=== PATIENT | male | born 1980 | race American Indian/Alaskan Native ===

== ENCOUNTER 2021-06-03 10:47 | Emergency (ER) | payer SELFPAY ==
[2021-06-03 11:04] VITALS: BP 120/73
--- NOTE | 2021-06-03 11:15 | Emergency Department Report ---
ED General Adult HPI - General Chief complaint: Back Pain/Injury Stated complaint: LOWER BACK PAIN Time Seen by Provider: 06/03/21 11:03 Source: patient Mode of arrival: Ambulatory Limitations: No Limitations - History of Present Illness Initial comments: 40-year-old -M[place] male patient presents with complaints of left low back pain x yesterday. Patient states while at work, he pulled a heavy item and instantly got pain in his left lower back. He states the pain was mild yesterday, however it worsened upon waking and now he rates it as 8/10 in severity. He describes the pain as a tightness and denies trying any OTC medication for his symptoms. He states he did put heat on his back last night. He denies any loss of bladder/bowel control, numbness/tingling/weakness in his legs, abdominal pain, nausea/vomiting, chest pain, or shortness of breath. No past medical history per patient - Related Data Previous Rx's Medication Instructions Recorded Last Taken Type Naproxen 500 mg PO BID PRN #20 tablet 06/03/21 Unknown Rx methocarbamoL [Methocarbamol] 500 mg PO TID PRN #20 tablet 06/03/21 Unknown Rx Allergies Allergy/AdvReac Type Severity Reaction Status Date / Time No Known Allergies Allergy Verified 06/03/21 11:03 ED Review of Systems ROS: Stated complaint: LOWER BACK PAIN Other details as noted in HPI Constitutional: denies: malaise Respiratory: denies: shortness of breath Cardiovascular: denies: as per HPI Gastrointestinal: denies: abdominal pain, hematochezia Genitourinary: denies: hematuria Musculoskeletal: back pain Neurological: denies: weakness, numbness, paresthesias, abnormal gait ED Past Medical Hx - Past Medical History Previous Medical History?: No - Surgical History Past Surgical History?: No - Medications Home Medications: Home Medications Medication Instructions Recorded Confirmed Last Taken Type Naproxen 500 mg PO BID PRN #20 tablet 06/03/21 Unknown Rx methocarbamoL [Methocarbamol] 500 mg PO TID PRN #20 tablet 06/03/21 Unknown Rx ED Physical Exam - General Limitations: No Limitations General appearance: alert, in no apparent distress - Head Head exam: Present: atraumatic, normocephalic - Eye Eye exam: Present: normal appearance - Respiratory Respiratory exam: Present: normal lung sounds bilaterally. Absent: respiratory distress - Cardiovascular Cardiovascular Exam: Present: regular rate, normal rhythm - Back Exam Back exam: Present: full ROM, paraspinal tenderness (Left upper lumbar). Absent: vertebral tenderness (No obvious deformities or step-offs noted) - Expanded Back Exam Expanded Back exam: Absent: saddle anesthesia - Neurological Exam Neurological exam: Present: alert, oriented X3, normal gait - Psychiatric Psychiatric exam: Present: normal affect, normal mood - Skin Skin exam: Present: warm, dry, intact, normal color. Absent: rash ED Course Vital Signs 06/03/21 11:01 Temperature 98.4 F Pulse Rate 67 Respiratory 16 Rate Blood Pressure 120/73 [Left] O2 Sat by Pulse 96 Oximetry ED Medical Decision Making - Medical Decision Making 40-year-old -M[place] male patient presents with complaints of left low back pain x yesterday. Patient states while at work, he pulled a heavy item and instantly got pain in his left lower back. He states the pain was mild yesterday, however it worsened upon waking and now he rates it as 8/10 in severity. He describes the pain as a tightness and denies trying any OTC medication for his symptoms. He states he did put heat on his back last night. He denies any loss of bladder/bowel control, numbness/tingling/weakness in his legs, abdominal pain, nausea/vomiting, chest pain, or shortness of breath. No past medical history per patient On exam, patient has tenderness to palpation of the left lumbar paraspinal muscles without vertebral tenderness or obvious deformity. He denies any red flag symptoms. His vitals are normal and he is well-appearing. Patient is stable for discharge home with treatment for back strain. He is to follow-up with his primary care doctor in 3 to 5 days. Discussed presumptive diagnosis, treatment plan, and signs and symptoms that should prompt immediate return to the emergency department in detail patient verbalized understanding. Critical care attestation.: If time is entered above; I have spent that time in minutes in the direct care of this critically ill patient, excluding procedure time. ED Disposition Clinical Impression: Low back pain Disposition: HOME / SELF CARE / HOMELESS Is pt being admited?: No Condition: Stable Instructions: Lumbar Strain Prescriptions: methocarbamoL [Methocarbamol] 500 mg PO TID PRN #20 tablet PRN Reason: muscle spasms/tightness Naproxen 500 mg PO BID PRN #20 tablet PRN Reason: pain Referrals: [facility] [Provider Group] - 3-5 Days
== END 2021-06-03 12:30 | disposition home or self-care (01) ==
LOC: ED 10:47
DX: M54.5 Low back pain (principal)
CPT/HCPCS: 99282